=== PATIENT | female | born 1990 | race Caucasian/White ===

== ENCOUNTER 2019-02-23 07:59 | Emergency (ER) | payer OTHER ==
[2019-02-23 08:04] VITALS: BP 120/73; PULSE 102; RESP 20; TEMP 98.1
[2019-02-23] MEDS ORDERED: DIAZEPAM 5 MG TAB PO STA (08:26)
[2019-02-23] MEDS ORDERED: KETOROLAC 30 MG/ML 1 ML VIAL IM STA (08:26)
--- NOTE | 2019-02-23 08:29 | ED ---
General Adult HPI - General Chief complaint: Neck Pain/Injury Stated complaint: Neck Pain, Pinched nerve Time Seen by Provider: 02/23/19 08:08 Source: patient, RN notes reviewed, old records reviewed Mode of arrival: ambulatory Limitations: no limitations - History of Present Illness Initial comments: Patient is a 29-year-old female presents today with 3 weeks of left-sided neck pain. She reports that she'll occasionally get numbness and tingling around on the left side of her arm into the third fourth and fifth digit. Patient reports that she has seen medics breath and started on steroids muscle relaxers. She reports that Flexeril helped slightly but the pain is continuing to persist today and she cannot get much sleep last night. Patient states that she has been taking the steroids and anti-inflammatory medicine as prescribed. She denies any fall or trauma for the onset of her pain. She was just woke up around 3 weeks ago. Patient states she went to a chiropractor to see if that would help but has had no significant success at this time. - Related Data Previous Rx's Medication Instructions Recorded Diazepam [Valium] 5 mg PO Q8HR PRN 3 Days #9 tab 02/23/19 Allergies Allergy/AdvReac Type Severity Reaction Status Date / Time No Known Allergies Allergy Verified 02/23/19 08:04 Review of Systems ROS Statement: Those systems with pertinent positive or pertinent negative responses have been documented in the HPI. ROS Other: All systems not noted in ROS Statement are negative. Past Medical History Past Medical History: No Reported History History of Any Multi-Drug Resistant Organisms: None Reported Past Surgical History: Cholecystectomy Past Psychological History: No Psychological Hx Reported Smoking Status: Current every day smoker Past Alcohol Use History: None Reported Past Drug Use History: None Reported General Exam - General Exam Comments Initial Comments: This is a 29-year-old female. Alert and oriented. No distress. Limitations: no limitations General appearance: alert, in no apparent distress Head exam: Present: atraumatic, normocephalic, normal inspection Eye exam: Present: normal appearance, PERRL, EOMI. Absent: scleral icterus, conjunctival injection, periorbital swelling ENT exam: Present: normal exam, mucous membranes moist Neck exam: Present: normal inspection, other (tenderness over left cervical spine and paraspinal muscles. ). Absent: tenderness, meningismus, lymphadenopathy Respiratory exam: Present: normal lung sounds bilaterally. Absent: respiratory distress, wheezes, rales, rhonchi, stridor Cardiovascular Exam: Present: regular rate, normal rhythm, normal heart sounds. Absent: systolic murmur, diastolic murmur, rubs, gallop, clicks GI/Abdominal exam: Present: soft, normal bowel sounds. Absent: distended, tenderness, guarding, rebound, rigid Extremities exam: Present: normal inspection, full ROM, normal capillary refill. Absent: tenderness, pedal edema, joint swelling, calf tenderness Back exam: Present: normal inspection Neurological exam: Present: alert, oriented X3, CN II-XII intact Course Vital Signs 02/23/19 08:02 Temperature 98.1 F Pulse Rate 102 H Respiratory 20 Rate Blood Pressure 120/73 O2 Sat by Pulse 99 Oximetry Medical Decision Making - Medical Decision Making This is a 29-year-old female presents today with complaints of left-sided neck pain pain with range of motion and movement. Patient this time has evidence of cervical spinal muscle spasm. X-ray shows evidence of displaced or at C5-C6 C6- C7. She occasionally will have paresthesias over the lateral aspect of the hand and arm. He reports paresthesias over the third fourth and fifth digit consistent with median nerve compression. Patient at this time was given IM Toradol, Coreg Patient Lucina. Discussed that she needs to follow-up with orthopedic fiscal specialist. All questions answered return parameters were discussed. - Radiology Data Radiology results: report reviewed Cervical spine visualized C1 through T1 and some review. Straight alignment without evidence of acute fracture dislocation. Prevertebral soft tissue appears within normal limits. C1-C2 articulation is within normal limits. Vertebral heights are obtained. This was staring at C5-C6 and C6-C7 levels. Mild anterior spurring at C6-C7. Patient's hair overlaps the cervical spine on the frontal be more prominent midline. Disposition Clinical Impression: Spasm of cervical paraspinous muscle, DDD (degenerative disc disease), cervical, Paresthesia and pain of left extremity Disposition: HOME SELF-CARE Condition: Good Instructions (If sedation given, give patient instructions): Cervical Strain (ED) Additional Instructions: Patient has a continue the steroid and antibiotic her medicine as previously prescribed. Patient should follow-up with orthopedic fiscal specialist and may benefit from deep tissue massage or continuing warm compresses over the neck. Prescriptions: Diazepam [Valium] 5 mg PO Q8HR PRN 3 Days #9 tab PRN Reason: Spasms Is patient prescribed a controlled substance at d/c from ED?: Yes If prescribed controlled substance>3 days was MAPS reviewed?: Prescribed <3 Days If opioid is for acute pain is fill amount 7 days or less?: Yes If Rx opioid, was Start Talking consent form obtained?: Yes Referrals: None,Stated [Primary Care Provider] - 1-2 days Rocco Soriano, [Doctor of Osteopathic Medicine] - 1-2 days Time of Disposition: 09:07
--- NOTE | 2019-02-23 08:51 | XR ---
EXAMINATION TYPE: XR cervical spine limited DATE OF EXAM: 02/23/2019 TECHNIQUE: Frontal, lateral, swimmer's, and open mouth view of the cervical spine are obtained. HISTORY: Pain COMPARISON: None FINDINGS: The cervical spine is visualized from C1 thru the top of T1 level on swimmer's view, it is straightened in alignment without evidence of acute fracture or dislocation. The pre-vertebral soft tissue appears within normal limits. The C1-C2 articulation is within normal limits on the open devendra th view. Vertebral body heights are maintained. There is mild disc space narrowing C5-C6 and C6-C7 le vels. Mild anterior spurring C6-C7 level is seen. Patient's hair overlaps the upper cervical spine on frontal view more prominent right of midline. IMPRESSION: As above
== END 2019-02-23 09:17 | disposition home or self-care (01) ==
LOC: EC 07:59
DX: M50.322 Other cervical disc degeneration at C5-C6 level (principal); F17.200 Nicotine dependence, unspecified, uncomplicated
CPT/HCPCS: 72040; 99284; 96372; J1885

== ENCOUNTER 2020-08-17 19:33 | Emergency (ER) | payer OTHER ==
[2020-08-17] MEDS ORDERED: ALBUTEROL NEBULIZED 2.5 MG/3 ML INHALATION STA ×2 (20:12→21:06)
[2020-08-17] MEDS ORDERED: diphenhydrAMINE 50 MG/ML 1 ML VIAL IVP STA (20:13)
--- NOTE | 2020-08-17 20:16 | ED ---
SOB HPI - General Chief Complaint: Shortness of Breath Stated Complaint: SOB Time Seen by Provider: 08/17/20 19:39 Source: patient Mode of arrival: ambulatory Limitations: no limitations - History of Present Illness Initial Comments: 30-year-old female presenting for 2 hours of shortness of breath. Patient states prostate 2 hours prior to arrival she developed shortness of breath she states that it hurts at maximal inspiration and feels tight/restrictive and is uncomfortable. Pt denies nausea, vomiting, fevers, abdominal pain, diarrhea, admits to slight cough and feels liek she is wheezing. denies asthma but states she has some food allergies, denies ingesting triggers but states she has been itching her arm since she has developed the shortness of breath/tightness/pain. Denies hemoptysis, leg swelling, calf pain. pt is currently 15.5 week . Patient enies lip or tongue swelling or sensation that throat is closing. Patient has no additional complaints. - Related Data Home Medications Medication Instructions Recorded Confirmed Cyclobenzaprine [Flexeril] 10 mg PO DAILY PRN 02/23/19 02/23/19 Ibuprofen [Motrin] 600 mg PO Q8HR PRN 02/23/19 02/23/19 Previous Rx's Medication Instructions Recorded diazePAM [Valium] 5 mg PO Q8HR PRN 3 Days #9 tab 02/23/19 Albuterol Sulfate [Proair Hfa] 1 - 2 puff INHALATION Q6HR PRN #1 08/17/20 inhaler Allergies Allergy/AdvReac Type Severity Reaction Status Date / Time No Known Allergies Allergy Verified 08/17/20 19:37 Review of Systems ROS Statement: Those systems with pertinent positive or pertinent negative responses have been documented in the HPI. ROS Other: All systems not noted in ROS Statement are negative. Past Medical History Past Medical History: No Reported History History of Any Multi-Drug Resistant Organisms: None Reported Past Surgical History: Cholecystectomy Past Psychological History: No Psychological Hx Reported Smoking Status: Former smoker Past Alcohol Use History: None Reported Past Drug Use History: None Reported General Exam - General Exam Comments Initial Comments: General: The patient is awake and alert, in no distress Eye: +3 mm pupils are equal, round and reactive to light, extra-ocular m ovements are intact. No nystagmus. There is normal conjunctiva bilaterally. No signs of icterus. Ears, nose, mouth and throat: There are moist mucous membranes and no oral lesions. Neck: The neck is supple, there is no tenderness or JVD. Cardiovascular: There is a regular rate and rhythm. No murmur, rub or gallop is appreciated. Respiratory: Respirations are non-labored, breath sounds are equal. Diminished air movmeent with expiratory wheeze. No stridor, rales, or rhonchi. Gastrointestinal: Soft, non-distended, non-tender abdomen without masses or organomegaly noted. There is no rebound or guarding present. Musculoskeletal: Normal ROM, no tenderness. Strength 5/5. Sensation intact. Radial pulses equal bilaterally 2+. Neurological: A&O x 3. CN II-XII intact grossly, There are no obvious motor or sensory deficits. Coordination appears grossly intact. Speech is normal. Skin: Skin is warm and dry and no rashes or lesions are noted. Psychiatric: Cooperative, appropriate mood & affect, normal judgment. Limitations: no limitations Course Vital Signs 08/17/20 08/17/20 08/17/20 19:33 20:32 20:36 Temperature 98.9 F Pulse Rate 102 H 99 104 H Respiratory 26 H Rate Blood Pressure 127/79 O2 Sat by Pulse 96 Oximetry 08/17/20 08/17/20 08/17/20 20:44 21:23 21:28 Temperature 98.5 F Pulse Rate 98 96 95 Respiratory 20 Rate Blood Pressure 132/68 O2 Sat by Pulse 100 Oximetry 08/17/20 22:11 Temperature 98.5 F Pulse Rate 104 H Respiratory 20 Rate Blood Pressure 118/78 O2 Sat by Pulse 100 Oximetry - Reevaluation(s) Reevaluation #1: pt on re-evaluation states pain gone and feels much less SOB after treatment/benadryl 08/17/20 Reevaluation #2: Second re-evaluation; pt state she feels 100% better. like she can actually breathe. discussed case with Dr. baldwin who recommends d/c with proair inhaler. 08/17/20 22:01 Medical Decision Making - Medical Decision Making nontoxic appearing 30yo female presenting for chest "restrictive" feeling at maximal inspiration, wheezing, itching. improvement with benadryl/albuterol. pt lungs cleared, improvement of overall airmovement and resolution of wheezing. patient and attending are both agreable and prefer discharge at this time. patient appears well, is not hypoxic and is to return for return of symptoms. - Lab Data Result diagrams: 08/17/20 20:19 08/17/20 20:19 Lab Results 08/17/20 08/17/20 08/17/20 Range/Units 20:19 20:19 20:19 WBC 12.9 H (3.8-10.6) k/uL RBC 4.95 (3.80-5.40) m/uL Hgb 14.0 (11.4-16.0) gm/dL Hct 40.4 (34.0-46.0) % MCV 81.6 (80.0-100.0) fL MCH 28.2 (25.0-35.0) pg MCHC 34.5 (31.0-37.0) g/dL RDW 14.1 (11.5-15.5) % Plt Count 186 (150-450) k/uL MPV 7.4 Neutrophils % 64 % Lymphocytes % 28 % Monocytes % 4 % Eosinophils % 2 % Basophils % 1 % Neutrophils # 8.3 H (1.3-7.7) k/uL Lymphocytes # 3.6 (1.0-4.8) k/uL Monocytes # 0.5 (0-1.0) k/uL Eosinophils # 0.3 (0-0.7) k/uL Basophils # 0.1 (0-0.2) k/uL PT 10.1 (9.0-12.0) sec INR 0.9 (<1.2) APTT 23.1 (22.0-30.0) sec Sodium 138 (137-145) mmol/L Potassium 4.2 (3.5-5.1) mmol/L Chloride 104 (98-107) mmol/L Carbon Dioxide 24 (22-30) mmol/L Anion Gap 10 mmol/L BUN 6 L (7-17) mg/dL Creatinine 0.52 (0.52-1.04) mg/dL Est GFR (CKD-EPI)AfAm >90 (>60 ml/min/1.73 sqM) Est GFR (CKD-EPI)NonAf >90 (>60 ml/min/1.73 sqM) Glucose 104 H (74-99) mg/dL Plasma Lactic Acid Pietro (0.7-2.0) mmol/L Calcium 9.3 (8.4-10.2) mg/dL Total Bilirubin 0.3 (0.2-1.3) mg/dL AST 22 (14-36) U/L ALT 20 (4-34) U/L Alkaline Phosphatase 68 (38-126) U/L Troponin I (0.000-0.034) ng/mL NT-Pro-B Natriuret Pep pg/mL Total Protein 6.7 (6.3-8.2) g/dL Albumin 3.7 (3.5-5.0) g/dL Coronavirus (PCR) (Not Detectd) 08/17/20 08/17/20 08/17/20 Range/Units 20:19 20:19 20:19 WBC (3.8-10.6) k/uL RBC (3.80-5.40) m/uL Hgb (11.4-16.0) gm/dL Hct (34.0-46.0) % MCV (80.0-100.0) fL MCH (25.0-35.0) pg MCHC (31.0-37.0) g/dL RDW (11.5-15.5) % Plt Count (150-450) k/uL MPV Neutrophils % % Lymphocytes % % Monocytes % % Eosinophils % % Basophils % % Neutrophils # (1.3-7.7) k/uL Lymphocytes # (1.0-4.8) k/uL Monocytes # (0-1.0) k/uL Eosinophils # (0-0.7) k/uL Basophils # (0-0.2) k/uL PT (9.0-12.0) sec INR (<1.2) APTT (22.0-30.0) sec Sodium (137-145) mmol/L Potassium (3.5-5.1) mmol/L Chloride (98-107) mmol/L Carbon Dioxide (22-30) mmol/L Anion Gap mmol/L BUN (7-17) mg/dL Creatinine (0.52-1.04) mg/dL Est GFR (CKD-EPI)AfAm (>60 ml/min/1.73 sqM) Est GFR (CKD-EPI)NonAf (>60 ml/min/1.73 sqM) Glucose (74-99) mg/dL Plasma Lactic Acid Pietro 1.4 (0.7-2.0) mmol/L Calcium (8.4-10.2) mg/dL Total Bilirubin (0.2-1.3) mg/dL AST (14-36) U/L ALT (4-34) U/L Alkaline Phosphatase (38-126) U/L Troponin I <0.012 (0.000-0.034) ng/mL NT-Pro-B Natriuret Pep 103 pg/mL Total Protein (6.3-8.2) g/dL Albumin (3.5-5.0) g/dL Coronavirus (PCR) (Not Detectd) 08/17/20 Range/Units 20:47 WBC (3.8-10.6) k/uL RBC (3.80-5.40) m/uL Hgb (11.4-16.0) gm/dL Hct (34.0-46.0) % MCV (80.0-100.0) fL MCH (25.0-35.0) pg MCHC (31.0-37.0) g/dL RDW (11.5-15.5) % Plt Count (150-450) k/uL MPV Neutrophils % % Lymphocytes % % Monocytes % % Eosinophils % % Basophils % % Neutrophils # (1.3-7.7) k/uL Lymphocytes # (1.0-4.8) k/uL Monocytes # (0-1.0) k/uL Eosinophils # (0-0.7) k/uL Basophils # (0-0.2) k/uL PT (9.0-12.0) sec INR (<1.2) APTT (22.0-30.0) sec Sodium (137-145) mmol/L Potassium (3.5-5.1) mmol/L Chloride (98-107) mmol/L Carbon Dioxide (22-30) mmol/L Anion Gap mmol/L BUN (7-17) mg/dL Creatinine (0.52-1.04) mg/dL Est GFR (CKD-EPI)AfAm (>60 ml/min/1.73 sqM) Est GFR (CKD-EPI)NonAf (>60 ml/min/1.73 sqM) Glucose (74-99) mg/dL Plasma Lactic Acid Pietro (0.7-2.0) mmol/L Calcium (8.4-10.2) mg/dL Total Bilirubin (0.2-1.3) mg/dL AST (14-36) U/L ALT (4-34) U/L Alkaline Phosphatase (38-126) U/L Troponin I (0.000-0.034) ng/mL NT-Pro-B Natriuret Pep pg/mL Total Protein (6.3-8.2) g/dL Albumin (3.5-5.0) g/dL Coronavirus (PCR) Not Detected (Not Detectd) Disposition Clinical Impression: Dyspnea, Wheezing, Chest discomfort Disposition: HOME SELF-CARE Condition: Good Instructions (If sedation given, give patient instructions): Food Allergy (ED), Reactive Airways Disease (ED) Additional Instructions: Please use medication as discussed. Please follow-up with family doctor in the next 2 days. RETURN TO ER FOR ANY ADDITIONAL EPISODES OF DYSPNEA OR CHEST DISCOMFORT. Please return to emergency room if the symptoms increase or worsen or for any other concerns. Prescriptions: Albuterol Sulfate [Proair Hfa] 1 - 2 puff INHALATION Q6HR PRN #1 inhaler PRN Reason: Wheezing Is patient prescribed a controlled substance at d/c from ED?: No Referrals: None,Stated [Primary Care Provider] - 1-2 days Time of Disposition: 21:51
--- NOTE | 2020-08-17 20:28 | XR ---
EXAMINATION TYPE: XR chest 2V DATE OF EXAM: 08/17/2020 COMPARISON: NONE HISTORY: Cough TECHNIQUE: 2 views FINDINGS: Heart and mediastinum are normal. Lungs are clear. Diaphragm is normal. Bony thorax appears normal. IMPRESSION: Normal chest.
[2020-08-17 20:36] LABS: Basophils # (A) 0.1 k/uL (0-0.2); Basophils % (A) 1 %; Eosinophils # (A) 0.3 k/uL (0-0.7); Eosinophils % (A) 2 %; HCT 40.4 % (34.0-46.0); Lymphocytes # (A) 3.6 k/uL (1.0-4.8); Lymphocytes % (A) 28 %; MCH 28.2 pg (25.0-35.0); MCHC 34.5 g/dL (31.0-37.0); MCV 81.6 fL (80.0-100.0); Mean Platelet Volume 7.4; Monocytes # (A) 0.5 k/uL (0-1.0); Monocytes % (A) 4 %; Neutrophils # (A) 8.3 k/uL (1.3-7.7); Neutrophils % (A) 64 %; Platelet Count 186 k/uL (150-450); RBC 4.95 m/uL (3.80-5.40); RDW 14.1 % (11.5-15.5); WBC 12.9 k/uL (3.8-10.6)
[2020-08-17 20:46] VITALS: RESP 20; TEMP 98.5
[2020-08-17 20:46] LABS: ALT 20 U/L (4-34); AST 22 U/L (14-36); African American GFR (CKD) >90 (>60 ml/min/1.73 sqM); Albumin 3.7 g/dL (3.5-5.0); Alkaline Phosphatase 68 U/L (38-126); Anion Gap 10 mmol/L; Blood Urea Nitrogen 6 mg/dL (7-17); Calcium 9.3 mg/dL (8.4-10.2); Carbon Dioxide 24 mmol/L (22-30); Chloride 104 mmol/L (98-107); Glucose 104 mg/dL (74-99); Non-African American GFR(CKD) >90 (>60 ml/min/1.73 sqM); Potassium 4.2 mmol/L (3.5-5.1); Sodium 138 mmol/L (137-145); Total Bilirubin 0.3 mg/dL (0.2-1.3); Total Protein 6.7 g/dL (6.3-8.2)
[2020-08-17 20:48] LABS: INR 0.9 (<1.2); Partial Thromboplastin Time 23.1 sec (22.0-30.0); Prothrombin Time 10.1 sec (9.0-12.0)
[2020-08-17 22:13] VITALS: BP 118/78; PULSE 104
== END 2020-08-17 22:11 | disposition home or self-care (01) ==
LOC: EC 19:33
DX: R06.00 Dyspnea, unspecified (principal); R07.89 Other chest pain; R06.2 Wheezing; Z20.822 Contact with and (suspected) exposure to COVID-19; Z87.891 Personal history of nicotine dependence; Z90.49 Acquired absence of other specified parts of digestive tract
CPT/HCPCS: 36415; 94640 ×2; 93005; 83880; 80053; 83605; 84484; 85025; 85610; 85730; 87635; 71046; 99285; 96374; J1200

== ENCOUNTER 2021-01-30 10:12 | Outpatient (CLI) | payer OTHER ==
--- NOTE | 2021-01-30 12:04 | US ---
EXAMINATION TYPE: US OB limited DATE OF EXAM: 01/30/2021 COMPARISON: NONE CLINICAL HISTORY: SIMBA. EXAM PERFORMED: GESTATIONAL AGE / DATING Physician Established: (38 weeks/4 days) EDC: 02/09/2021 No growth performed on today?s study per ordering physician SURVEY SIMBA: 11.1 cm Normal Ultrasound evidence of premature rupture of membranes? no HEART RATE: 154 bpm RHYTHM: Normal IMPRESSION: Single live intrauterine with amniotic fluid index measuring 11.1 cm.
== END 2021-01-30 10:43 | disposition home or self-care (01) ==
LOC: FBPOP 10:12
PROVIDERS: ATTEND Obstetrics & Gynecology
DX: O41.03X0 Oligohydramnios, third trimester, not applicable or unspecified (principal); O99.333 Smoking (tobacco) complicating pregnancy, third trimester; F17.200 Nicotine dependence, unspecified, uncomplicated; Z3A.38 38 weeks gestation of pregnancy
CPT/HCPCS: 76815

== ENCOUNTER 2021-02-04 06:00 | Inpatient (IN) | payer BC, OTHER ==
--- NOTE | 2021-02-03 20:04 | P.HPOB ---
History of Present Illness H&P Date: 02/03/21 Chief Complaint: Induction of labor This is a 30 y.o. female, 1, para 0 with an estimated date of confinement of 02/09/2021, estimated gestational age of 39-2/7 weeks, who presents for induction of labor. She complains of lower back pain and frequent contractions. Her fluid level was low at 5-6 cm for a couple weeks, but last week SIMBA was 11 cm. course has otherwise been uncomplicated. labs: GC/Chlamydia/Trichomonas-neg Hepatitis B surface antigen-neg RPR-NR Rubella-immune Blood type-B+ Antibody screen-neg HIV-NR Hemoglobin-14.6 Toxoplasma-neg Random glucose-86 1 hr. GTT-126 GBS-positive OB Hx: Hand Sander Hx: No hx STDs Social Hx: . Works as a therapist. Review of Systems Constitutional: Denies chills, Denies fever Eyes: denies blurred vision, denies pain Ears, nose, mouth and throat: Denies headache, Denies sore throat Cardiovascular: Denies chest pain, Denies shortness of breath Respiratory: Denies cough Gastrointestinal: Reports abdominal pain (contractions) Genitourinary: Reports pelvic pain, Reports Musculoskeletal: Reports low back pain Integumentary: Denies pruritus, Denies rash Neurological: Denies numbness, Denies weakness Psychiatric: Denies anxiety, Denies depression Past Medical History Past Medical History: No Reported History History of Any Multi-Drug Resistant Organisms: None Reported Past Surgical History: Cholecystectomy Past Psychological History: No Psychological Hx Reported Smoking Status: Former smoker Past Alcohol Use History: None Reported Past Drug Use History: None Reported - Past Family History Mother Family Medical History: No Reported History Medications and Allergies Home Medications Medication Instructions Recorded Confirmed Type Pnv,Calcium 72/Iron/Folic Acid 02/03/21 History [ Plus Tablet] Allergies Allergy/AdvReac Type Severity Reaction Status Date / Time No Known Allergies Allergy Verified 01/30/21 10:33 Exam Osteopathic Statement: *. No significant issues noted on an osteopathic structural exam other than those noted in the History and Physical/Consult. HEENT: within normal limits Heart: regular rate and rhythm Lungs: clear to auscultation bilaterally Abdomen: soft, Cervix: 2 cm/60%/-2 heart tones: 140's Extremities: neg. Shannon's Assessment and Plan (1) 39 weeks gestation of Status: Acute Code(s): Z3A.39 - 39 WEEKS GESTATION OF SNOMED Code(s): 98506401 Plan: Proceed with oxytocin induction of labor. Expectant management. Epidural anesthesia if desired.
[2021-02-04] MEDS ORDERED: METHYLERGONOVINE 0.2 MG/ML 1 ML AMP IM PRN (06:32)
[2021-02-04] MEDS ORDERED: OXYTOCIN 30 UNITS/500 ML NS 30 UNIT in SALINE 1 500ML.BAG IV SCH (06:32)
[2021-02-04] MEDS ORDERED: CARBOPROST TROMETHAMINE 250 MCG/ML 1 ML AMP IM PRN (06:32)
[2021-02-04] MEDS ORDERED: LIDOCAINE 1% (10MG/ML) FOR IV START INTRADERMA PRN (06:32)
[2021-02-04] MEDS ORDERED: LIDOCAINE 0.5% (PF) 5 MG/ML (50 ML SDV) SQ PRN (06:32)
[2021-02-04] MEDS ORDERED: TERBUTALINE 1 MG/ML VIAL SQ PRN (06:32)
[2021-02-04] MEDS ORDERED: AMPICILLIN 2,000 MG in SODIUM CHLORIDE 0.9% 100 ML IVPB ONE (06:32)
[2021-02-04] MEDS ORDERED: OXYTOCIN 10 UNIT/ML 1 ML VIAL IM PRN (06:32)
[2021-02-04 06:43] LABS: Basophils % (A) 0 %; Eosinophils # (A) 0.2 k/uL (0-0.7); Eosinophils % (A) 1 %; HCT 37.6 % (34.0-46.0); HGB 12.8 gm/dL (11.4-16.0); Lymphocytes # (A) 2.8 k/uL (1.0-4.8); Lymphocytes % (A) 20 %; MCH 28.6 pg (25.0-35.0); MCV 84.3 fL (80.0-100.0); Mean Platelet Volume 8.6; Monocytes # (A) 0.6 k/uL (0-1.0); Monocytes % (A) 4 %; Neutrophils % (A) 73 %; Platelet Count 228 k/uL (150-450); RBC 4.47 m/uL (3.80-5.40); RDW 13.9 % (11.5-15.5); WBC 13.7 k/uL (3.8-10.6)
[2021-02-04] MEDS: LACTATED RINGERS 1,000 ML IV SCH ×2 (06:56→14:35)
[2021-02-04] MEDS: AMPICILLIN 1,000 MG in SODIUM CHLORIDE 0.9% 50 ML IVPB SCH ×3 (11:06→19:18)
[2021-02-04] MEDS: BUTORPHANOL 1 MG/ML 1 ML VIAL IV PRN ×3 (15:57→22:25)
[2021-02-05] MEDS ORDERED: ACETAMINOPHEN TAB 325 MG TAB PO PRN (00:13)
[2021-02-05] MEDS ORDERED: ZOLPIDEM 5 MG TAB PO PRN (00:13)
[2021-02-05] MEDS ORDERED: diphenhydrAMINE 25 MG CAP PO PRN (00:13)
[2021-02-05] MEDS ORDERED: BENZOCAINE/MENTHOL SPRAY 1 GM/SPRAY AEROSOL TOPICAL PRN (00:13)
[2021-02-05] MEDS ORDERED: diphenhydrAMINE 50 MG CAP PO PRN (00:13)
[2021-02-05] MEDS ORDERED: diphenhydrAMINE 50 MG/ML 1 ML VIAL IVP PRN ×2 (00:13)
[2021-02-05] MEDS ORDERED: SIMETHICONE 80 MG CHEWABLE PO PRN (00:13)
[2021-02-05] MEDS ORDERED: LANOLIN CREAM 5 GM TUBE TOPICAL PRN (00:13)
[2021-02-05] MEDS ORDERED: HYDROCORTISONE 2.5% RECTAL CREAM 30 GM TUBE RECTAL PRN (00:13)
[2021-02-05] MEDS ORDERED: OXYTOCIN 30 UNITS/500 ML NS 30 UNIT in SALINE 1 500ML.BAG IV SCH (00:13)
[2021-02-05 00:17] VITALS: RESP 16
--- NOTE | 2021-02-05 00:25 | P.PROBDLV ---
Vaginal Delivery Note - . Vaginal Delivery Note: This patient underwent oxytocin induction of labor with artificial rupture of membranes with clear fluid noted. She did also receive antibiotic prophylaxis for group B streptococcus. Her labor stalled at 5 cm for several hours and with continued oxytocin, she did make further change. She did receive several doses of Stadol while in labor. She reached complete dilation and began pushing. Shortly after beginning pushing, the baby's heart rate did dip into the 80s with very gradual return up to the 90s. After several minutes and various position changes, she was placed on her hands and knees. When this did not resolve the heart rate, she was put back on her back and immediately the heart rate came back up into the 100's. She resumed pushing and with one further push, the infant's head delivered in a right occiput anterior lie. At this point it was apparent that there was a turtle sign and shoulder dystocia was recognized. Additional staff was already in the room. I had the patient stop pushing and I put my gloved hand in between the baby and the symphysis pubis. The shoulders were in an transverse lie straight across the pelvis. I had her try to push once and this did not free up the shoulder dystocia. Therefore I swept my hand along the baby's back towards the posterior or right shoulder and turn the baby slightly into a more vertical axis. She then was able to give a push and baby did deliver. Total time of shoulder dystocia was 2 minutes. There was a cord around 1 hand but no nuchal cord. The baby was immediately placed on mother's abdomen and nose and mouth were bulb suctioned. Cord was clamped and cut and baby was taken immediately to warmer for awaiting nursing staff. A viable male infant is noted with weight of 7 lbs. 5 oz. scores are 6 at 1 minute 9 at 5 minutes and 9 at 10 minutes. Baby is moving all extremities and was pink and crying shortly after delivery. No evidence of fracture was identified at the time of delivery. After waiting almost 20 minutes for the placenta to deliver, I placed my gloved hand within the uterus and manually removed the placenta. It was adherent to the fundal region slightly but I was able to free it in pieces. Uterus did contract fairly well after oxytocin was given and uterine massage was carried out. I placed a gloved hand back in after the placenta was removed and no further tissue was obtained. Inspection of the perineum revealed a small second-degree perineal laceration and a right periurethral laceration. The second-degree perineal laceration was anesthetized with 1% lidocaine and then sutured with 3-0 Vicryl suture in the usual multilayer fashion. The right periurethral laceration was anesthetized with 1% lidocaine and then sutured with 2-0 Vicryl suture in a running locked fashion. Estimated blood loss is approximately 200 mL's. Mother and are both in stable condition.
[2021-02-05] MEDS: IBUPROFEN 600 MG TAB PO PRN ×2 (00:44→15:53)
[2021-02-05] MEDS: LACTATED RINGERS 1,000 ML IV SCH (00:47)
[2021-02-05] MEDS: AMPICILLIN 1,000 MG in SODIUM CHLORIDE 0.9% 50 ML IVPB SCH (00:47)
[2021-02-05] MEDS: SENNOSIDES-DOCUSATE SODIUM 1 EACH TAB PO SCH ×3 (02:36→20:29)
[2021-02-05 06:53] LABS: Basophils % (A) 0 %; Eosinophils % (A) 0 %; HCT 38.3 % (34.0-46.0); HGB 12.3 gm/dL (11.4-16.0); Lymphocytes % (A) 9 %; MCH 27.4 pg (25.0-35.0); MCHC 32.1 g/dL (31.0-37.0); MCV 85.3 fL (80.0-100.0); Mean Platelet Volume 8.7; Monocytes # (A) 0.8 k/uL (0-1.0); Monocytes % (A) 3 %; Neutrophils # (A) 20.6 k/uL (1.3-7.7); Neutrophils % (A) 87 %; Platelet Count 248 k/uL (150-450); RBC 4.49 m/uL (3.80-5.40); RDW 13.8 % (11.5-15.5); WBC 23.6 k/uL (3.8-10.6)
--- NOTE | 2021-02-05 08:24 | P.PNOBGVD ---
Subjective - Subjective Principal diagnosis: Status post vaginal delivery day #1 Interval history: Patient is doing well today. Pain is fairly well controlled with Tylenol. Bleeding has been minimal. Baby is working on latching. Patient reports: Reports appetite normal, Reports voiding normally, Reports pain well controlled, Reports ambulating normally [place]: doing well, nursing well Objective - Latest Vital Signs Latest vital signs: Vital Signs Temp Pulse Resp BP 02/05/21 03:57 97.1 F L 97 16 121/81 02/05/21 01:30 76 16 112/54 02/05/21 01:00 90 16 111/57 02/05/21 00:30 94 16 132/81 02/05/21 00:15 101 H 16 133/70 02/05/21 00:00 99 18 144/66 02/04/21 23:45 94 18 119/72 02/04/21 23:30 97.0 F L 94 18 119/72 Intake and Output 02/04/21 02/05/21 02/05/21 22:59 06:59 14:59 Intake Total 167 Output Total 500 Balance -333 Intake: Intake, IV Titration 167 Amount Oxytocin 30 Units/500 ml 167 Ns 30 unit In Saline 1 500ml.bag @ Per Protocol IV .Q0M [facility] Rx#:[id number] Output: Estimated Blood Loss 500 Other: # Voids 2 1 - Exam Extremities: Present: normal. Absent: tenderness Abdomen: Present: normal appearance, soft. Absent: distention, tenderness Uterus: Present: normal, firm. Absent: tenderness - Labs Labs: Abnormal Lab Results - Last 24 Hours (Table) 02/05/21 Range/Units 06:21 WBC 23.6 H (3.8-10.6) k/uL Neutrophils # 20.6 H (1.3-7.7) k/uL Assessment and Plan Assessment: Status post vaginal delivery day #1 (1) 39 weeks gestation of Current Visit: No Status: Acute Code(s): Z3A.39 - 39 WEEKS GESTATION OF SNOMED Code(s): 50416390 Plan: Continue with care today. Anticipate discharge home tomorrow.
[2021-02-06] MEDS: IBUPROFEN 600 MG TAB PO PRN ×2 (01:25→08:00)
[2021-02-06 08:15] VITALS: BP 124/83; PULSE 77; TEMP 98.2
--- NOTE | 2021-02-06 09:00 | P.DS ---
Providers Date of admission: 02/04/21 06:10 Expected date of discharge: 02/06/21 Attending physician: Lou Gan Primary care physician: Stated None - Discharge Diagnosis(es) (1) 39 weeks gestation of Current Visit: No Status: Acute Hospital Course: This is a 30-year-old female 1 para 0 at 39-2/7 weeks who presented for induction of labor. She underwent oxytocin induction of labor and delivered vaginally a viable male with scores of 6 at 1 minute 9 at 5 minutes and 9 at 10 minutes and weight of 7 lbs. 5 oz. Delivery was complicated by a 2 minute shoulder dystocia. Both baby and mother have been doing well since delivery. Her course has been uncomplicated. Lochia has been decreasing. Pain is been well controlled with Tylenol. She is breast-feeding. Vital signs are stable. Abdomen is soft with fundus firm and nontender. Extremities show negative Homans. Impression is status post vaginal delivery day #2. Plan is to discharge home today. Routine instructions are given. She will be given a prescription for a breast pump. She is advised to call the office if she has any further questions or concerns prior to her appointment time. Procedures: Oxytocin induction of labor Spontaneous vaginal delivery of a viable male infant on 02/04/2021 Patient Condition at Discharge: Stable Plan - Discharge Summary New Discharge Prescriptions: No Action Pnv,Calcium 72/Iron/Folic Acid [ Plus Tablet] 1 tab PO DAILY Discharge Medication List Pnv,Calcium 72/Iron/Folic Acid [ Plus Tablet] 1 tab PO DAILY 02/03/21 [History] Follow up Appointment(s)/Referral(s): Lou Gan DO [Doctor of Osteopathic Medicine] - 03/18/21 11:30 am Activity/Diet/Wound Care/Special Instructions: Instructions 1. Do not begin any exercise program for 3 weeks. 2. Do not resume sexual relations for 3 weeks or longer if uncomfortable. 3. You may take tub baths or showers at any time. 4. You may use tampons if desired after 3 weeks. 5. Keep the area of episiotomy (stitches) clean and dry. 6. If you are not nursing, wear a good fitting, supportive bra during the day and limit fluid intake for at least 1 week to prevent breast engorgement. 7. Call the office, [phone], within the next week to make appointment for your 6 week checkup if it has not already been made. 8. Report any of the following occurrences to the doctor promptly: a. Heavy, excessive bleeding b. Chills, fever c. Burning or frequency of urination d. Pain or redness and breasts if nursing e. Increasing pain or swelling in episiotomy (stitches). In addition to the above instructions, the following additional should be followed: 1. No heavy lifting or straining (exercising) until after 6 week checkup. 2. Keep abdominal incision clean and dry: You may wear a dressing if more comfortable. 3. Make office appointment for 10 days after going home or as instructed by her doctor. Discharge Disposition: HOME SELF-CARE
== END 2021-02-06 10:55 | disposition home or self-care (01) | DRG 807 ==
LOC: 4FBP 06:10
PROVIDERS: ADMIT Obstetrics & Gynecology; ATTEND Obstetrics & Gynecology
PROC: 10E0XZZ Delivery of Products of Conception, External Approach (ICD-10-PCS; principal; 2021-02-05)
PROC: 3E033VJ Introduction of Other Hormone into Peripheral Vein, Percutaneous Approach (ICD-10-PCS; principal; 2021-02-05)
PROC: 0HQ9XZZ Repair Perineum Skin, External Approach (ICD-10-PCS; principal; 2021-02-05)
PROC: 10907ZC Drainage of Amniotic Fluid, Therapeutic from Products of Conception, Via Natural or Artificial Opening (ICD-10-PCS; principal; 2021-02-05)
DX: O32.2XX0 Maternal care for transverse and oblique lie, not applicable or unspecified (principal); Z37.0 Single live birth; O66.0 Obstructed labor due to shoulder dystocia; O70.1 Second degree perineal laceration during delivery; O36.8330 Maternal care for abnormalities of the fetal heart rate or rhythm, third trimester, not applicable or unspecified; O71.82 Other specified trauma to perineum and vulva; O69.81X0 Labor and delivery complicated by cord around neck, without compression, not applicable or unspecified; Z3A.39 39 weeks gestation of pregnancy; Z87.891 Personal history of nicotine dependence; Z90.49 Acquired absence of other specified parts of digestive tract
CPT/HCPCS: 85025; 86850; 86900; 86901; 88307

== ENCOUNTER 2022-04-16 04:33 | Emergency (ER) | payer BC, OTHER ==
[2022-04-16 04:38] VITALS: RESP 16
[2022-04-16] MEDS ORDERED: IPRATROPIUM-ALBUTEROL 3 ML NEB INHALATION STA (04:48)
--- NOTE | 2022-04-16 04:49 | ED ---
SOB HPI - General Chief Complaint: Shortness of Breath Stated Complaint: SOB Time Seen by Provider: 04/16/22 04:34 Source: patient, RN notes reviewed, old records reviewed Mode of arrival: ambulatory Limitations: no limitations - History of Present Illness Initial Comments: This is a 32-year-old female pulses of medical history coming in for difficulty breathing. Patient does believe that she has severe shortness of breath with congestion, feels like she is wheezing. Patient is a nonsmoker but is positive for recent diagnosis of . Patient wishes about 16 weeks. No chest pain no other complaints MD Complaint: shortness of breath, cough Severity scale (1-10): 3 Quality: aching Consistency: constant Improves With: nothing Worsens With: nothing Known History Of: asthma Context: recent illness, other (Positive for ) Associated Symptoms: denies other symptoms Treatments Prior to Arrival: none - Related Data Home Medications Medication Instructions Recorded Confirmed Vit No.180/Iron/Folic 1 tab PO DAILY 02/03/21 02/04/21 [ Plus Tablet] Previous Rx's Medication Instructions Recorded Albuterol Sulfate [Proair 1 puff INHALATION Q6H PRN #1 each 04/17/22 Digihaler] Allergies Allergy/AdvReac Type Severity Reaction Status Date / Time No Known Allergies Allergy Verified 04/16/22 04:35 Review of Systems ROS Statement: Those systems with pertinent positive or pertinent negative responses have been documented in the HPI. ROS Other: All systems not noted in ROS Statement are negative. Past Medical History Past Medical History: No Reported History History of Any Multi-Drug Resistant Organisms: None Reported Past Surgical History: Cholecystectomy Past Anesthesia/Blood Transfusion Reactions: No Reported Reaction Past Psychological History: No Psychological Hx Reported Smoking Status: Former smoker Past Alcohol Use History: None Reported Past Drug Use History: None Reported - Past Family History Mother Family Medical History: No Reported History General Exam Limitations: no limitations General appearance: alert, in no apparent distress Head exam: Present: atraumatic, normocephalic, normal inspection Eye exam: Present: normal appearance, PERRL, EOMI. Absent: scleral icterus, conjunctival injection, periorbital swelling ENT exam: Present: normal exam, mucous membranes moist Neck exam: Present: normal inspection. Absent: tenderness, meningismus, lymphadenopathy Respiratory exam: Present: normal lung sounds bilaterally, wheezes. Absent: respiratory distress, rales, rhonchi, stridor Cardiovascular Exam: Present: regular rate, normal rhythm, normal heart sounds. Absent: systolic murmur, diastolic murmur, rubs, gallop, clicks GI/Abdominal exam: Present: soft, normal bowel sounds. Absent: distended, tenderness, guarding, rebound, rigid Extremities exam: Present: normal inspection, full ROM, normal capillary refill. Absent: tenderness, pedal edema, joint swelling, calf tenderness Back exam: Present: normal inspection Neurological exam: Present: alert, oriented X3, CN II-XII intact Psychiatric exam: Present: normal affect, normal mood Skin exam: Present: warm, dry, intact, normal color. Absent: rash Course Vital Signs 04/16/22 04/16/22 04/16/22 04:35 04:38 04:51 Temperature 97.4 F L 98.2 F Pulse Rate 102 H 92 Respiratory 16 16 16 Rate Blood Pressure 139/91 128/76 O2 Sat by Pulse 98 93 L Oximetry 04/16/22 04/16/22 05:28 05:40 Temperature Pulse Rate 95 98 Respiratory Rate Blood Pressure O2 Sat by Pulse Oximetry - Reevaluation(s) Reevaluation #1: Medical record is reviewed Symptoms have been improved here in the ER Patient informed results and questions answered Medical Decision Making - Medical Decision Making 32-year-old difficulty breathing and . Breathing is been getting worse when she has have a normal x-ray here in the ER normal neurology testing and patient can be discharged home - Lab Data Lab Results 04/16/22 04/16/22 04/16/22 Range/Units 04:48 04:48 05:00 Urine Color Light Yellow Urine Appearance Clear (Clear) Urine pH 5.5 (5.0-8.0) Ur Specific [place] 1.005 (1.001-1.035) Urine Protein Negative (Negative) Urine Glucose (UA) Negative (Negative) Urine Ketones Negative (Negative) Urine Blood Negative (Negative) Urine Nitrite Negative (Negative) Urine Bilirubin Negative (Negative) Urine Urobilinogen <2.0 (<2.0) mg/dL Ur Leukocyte Esterase Negative (Negative) Urine HCG, Qual Detected (Not Detectd) Coronavirus (PCR) Not Detected (Not Detectd) - Radiology Data Radiology results: report reviewed (Chest x-rays negative for acute disease), image reviewed Disposition Clinical Impression: Acute bronchitis, Upper respiratory infection Disposition: HOME SELF-CARE Condition: Good Instructions (If sedation given, give patient instructions): Acute Bronchitis (ED) Prescriptions: Albuterol Sulfate [Proair Digihaler] 1 puff INHALATION Q6H PRN #1 each PRN Reason: Wheezing Is patient prescribed a controlled substance at d/c from ED?: No Referrals: None,Stated [Primary Care Provider] - 1-2 days Time of Disposition: 05:30
[2022-04-16 04:54] VITALS: BP 128/76; TEMP 98.2
--- NOTE | 2022-04-16 05:07 | XR ---
EXAMINATION TYPE: XR chest 1V portable DATE OF EXAM: 04/16/2022 COMPARISON: 08/17/2020 HISTORY: Cough TECHNIQUE: FINDINGS: Heart and mediastinum are normal. Lungs are clear. Diaphragm is normal. Bony thorax is inta ct. The pulmonary vascularity is normal. IMPRESSION: Normal chest. No change.
[2022-04-16 05:22] LABS: Appearance,Urine Clear (Clear); Bilirubin,Urine Negative (Negative); Blood,Urine Negative (Negative); Color,Urine Light Yellow; Glucose,Urine (UA) Negative (Negative); Ketones,Urine Negative (Negative); Leukocyte Esterase,Urine Negative (Negative); Nitrite,Urine Negative (Negative); PH, Urine 5.5 (5.0-8.0); Protein,Urine Negative (Negative); Specific Gravity,Urine 1.005 (1.001-1.035); Urobilinogen,Urine <2.0 mg/dL (<2.0)
[2022-04-16 05:41] VITALS: PULSE 98
== END 2022-04-16 06:30 | disposition home or self-care (01) ==
LOC: EC 04:33
DX: J20.9 Acute bronchitis, unspecified (principal); J06.9 Acute upper respiratory infection, unspecified; Z87.891 Personal history of nicotine dependence; Z20.822 Contact with and (suspected) exposure to COVID-19
CPT/HCPCS: 71045; 81003; 81025; 87635; 94640; 99285

== ENCOUNTER → 2022-06-26 | Outpatient (CLI) | payer BC, OTHER | END | disposition home or self-care (01) | LOC: LABWHC1 11:39 | PROVIDERS: ATTEND Emergency Medicine | DX: Z20.822 Contact with and (suspected) exposure to COVID-19 (principal) ==

== ENCOUNTER 2022-08-07 15:18 | Emergency (ER) | payer BC, OTHER ==
[2022-08-07 15:26] VITALS: TEMP 98.2
[2022-08-07] MEDS ORDERED: DEXAMETHASONE SOD PHOSPHATE 10 MG/ML 1 ML VIAL IV STA (15:34)
[2022-08-07] MEDS ORDERED: ALBUTEROL NEBULIZED 2.5 MG/3 ML INHALATION STA (15:34)
[2022-08-07] MEDS ORDERED: IPRATROPIUM 0.5 MG/2.5 ML NEBU INHALATION STA (15:34)
--- NOTE | 2022-08-07 15:52 | ED ---
General Adult HPI - General Chief complaint: Shortness of Breath Stated complaint: AL Time Seen by Provider: 08/07/22 15:28 Source: patient Mode of arrival: ambulatory Limitations: no limitations - History of Present Illness Initial comments: Dictation was produced using [employer] dictation software. please excuse any grammatical, word or spelling errors. Chief Complaint: 32-year-old female with known past medical history of asthma or COPD presents emergency department for shortness of breath History of Present Illness: Patient's 32-year-old female presents emergency department with shortness of breath. Patient states that her shortness of breath significantly increased today. She has been having bouts of wheezing since May after having been diagnosed with pneumonia and COVID-19. She started expense entrance of breath at work with noticeable wheezing. Denies any fever. She does have chest pain when she coughs. States that she has no history of blood clots or DVT. No recent travel. She does not take any antico agulation medication. Does not take oral contraceptives. The ROS documented in this emergency department record has been reviewed and confirmed by me. Those systems with pertinent positive or negative responses have been documented in the HPI. All other systems are other negative and/or noncontributory. PHYSICAL EXAM: General Impression: Alert and oriented x3, dyspneic, reading with pursed lips HEENT: Normocephalic atraumatic, extra-ocular movements intact, pupils equal and reactive to light bilaterally, mucous membranes moist. Cardiovascular: Heart regular rate and rhythm Chest: Diffuse wheezing with auscultation of the lungs Abdomen: abdomen soft, non-tender, non-distended, no organomegaly Musculoskeletal: Pulses present and equal in all extremities, no peripheral edema Motor: no focal deficits noted Neurological: CN II-XII grossly intact, no focal motor or sensory deficits noted Skin: Intact with no visualized rashes Psych: Normal affect and mood ED course: 32-year-old female presents emergency Department with shortness of breath. Physical examination shows a distressed female with dyspnea signs upon arrival shows borderline hypoxia 91%. She is tachypneic at 26 with a heart rate of 124. Repeat oxygen levels 80% on room air. Nursing notes and chart review was performed My EKG interpretation: Ventricular rate 116, sinus tachycardia, WI interval 137, QRS 90, QTC 392. No WI prolongation, no QTC prolongation, no ST or T-wave changes noted. Overall, this EKG is unremarkable Patient reevaluated after breathing treatment and steroids after being observed in the emergency department for 2 hours. Patient feels a lot better. She appears more palatable. We auscultation of the lungs are clear. Repeat vitals are stable. Disposition options were discussed she's agreeable for discharge with strict return precautions. Patient given prescriptions for antibiotics, rest inhaler, albuterol nebulizer medicine and steroid Dosepak. Strongly advised follow up with primary care doctor. Was pt. sent in by a medical professional or institution (EDITA Granados, [employer], urgent care, hospital, or residential...) When possible be specific @ -No Did you speak to anyone other than the patient for history (EMS, parent, family, police, friend...)? What history was obtained from this source @ -No Did you review nursing and triage notes (agree or disagree)? Why? @ -I reviewed and agree with nursing and triage notes Were old charts reviewed (outside hosp., previous admission, EMS record, old EKG, old radiological studies, urgent care reports/EKG's, residential records)? Report findings @ -No old charts were reviewed Differential Diagnosis (chest pain, altered mental status, abdominal pain women, abdominal pain men, vaginal bleeding, weakness, fever, dyspnea, syncope, headache, dizziness, GI bleed, back pain, seizure, CVA, palpatations, mental health)? @ -not applicable EKG interpreted by me (3pts min.). @ -As above X-rays interpreted by me (1pt min.). @ -As above CT interpreted by me (1pt min.). @ -None done U/S interpreted by me (1pt. min.). @ -None done What testing was considered but not performed or refused? (CT, X-rays, U/S, labs)? Why? @ -CT was considered however patient's clinical presentation unlikely to be home embolism What meds were considered but not given or refused? Why? @ -None Did you discuss the management of the patient with other professionals (professionals i.e. [employer] Granados, [employer], lab, RT, psych nurse, social sciences lecturer, military lawyer, teacher, chief digital officer, case filler)? Give summary @ -See above Was smoking cessation discussed for >3mins.? @ -No Was critical care preformed (if so, how long)? @ -No Were there social determinants of health that impacted care today? How? (Homel essness, low income, unemployed, alcoholism, drug addiction, transportation, low edu. Level, literacy, decrease access to med. care, skilled nursing, rehab)? @ -No Was there de-escalation of care discussed even if they declined (Discuss DNR or withdrawal of care, Hospice)? DNR status @ -No What co-morbidities impacted this encounter? (DM, HTN, Smoking, COPD, CAD, Cancer, CVA, ARF, Chemo, Hep., AIDS, mental health diagnosis, sleep apnea, morbid obesity)? @ -None Was patient admitted / discharged? Hospital course, mention meds given and route, prescriptions, significant lab abnormalities, going to OR and other pertinent info. @ -See above Undiagnosed new problem with uncertain prognosis? @ -No Drug Therapy requiring intensive monitoring for toxicity (Heparin, Nitro, Insulin, Cardizem)? @ -No Were any procedures done? @ -No Diagnosis/symptom? @ -Acute bronchitis Acute, or Chronic, or Acute on Chronic? @ -Acute Uncomplicated (without systemic symptoms) or Complicated (systemic symptoms)? @ -Uncomplicated Side effects of treatment? @ -No Exacerbation, Progression, or Severe Exacerbation? @ -No Poses a threat to life or bodily function? How? (Chest pain, [place], [place], pneumonia, PE, COPD, DKA, ARF, appy, cholecystitis, CVA, Diverticulitis, Homicidal, Suicidal, threat to staff... and all critical care pts) @ -No - Related Data Home Medications Medication Instructions Recorded Confirmed Vit No.180/Iron/Folic 1 tab PO DAILY 02/03/21 02/04/21 [ Plus Tablet] Previous Rx's Medication Instructions Recorded Albuterol Sulfate [Proair 1 puff INHALATION Q6H PRN #1 each 04/17/22 Digihaler] Albuterol Nebulized (Conc) 2.5 mg INHALATION Q6H PRN 6 Days 08/07/22 [Ventolin Nebulized (Conc)] #75 ml Albuterol Sulfate [Proair Hfa] 1 - 2 puff INHALATION Q6HR PRN 08/07/22 #8.5 gm Azithromycin [Zithromax Z Pack] 1 tab PO DIRECTED #6 tab 08/07/22 methylPREDNISolone Dose Pack 4 mg PO DIRECTED #1 packet 08/07/22 [Medrol Dose Pack] Allergies Allergy/AdvReac Type Severity Reaction Status Date / Time No Known Allergies Allergy Verified 04/16/22 04:35 Review of Systems ROS Statement: Those systems with pertinent positive or pertinent negative responses have been documented in the HPI. ROS Other: All systems not noted in ROS Statement are negative. Past Medical History Past Medical History: No Reported History History of Any Multi-Drug Resistant Organisms: None Reported Past Surgical History: Cholecystectomy Past Anesthesia/Blood Transfusion Reactions: No Reported Reaction Past Psychological History: No Psychological Hx Reported Smoking Status: Former smoker Past Alcohol Use History: None Reported Past Drug Use History: None Reported - Past Family History Mother Family Medical History: No Reported History General Exam Limitations: no limitations Course Vital Signs 08/07/22 08/07/22 08/07/22 15:24 15:45 15:47 Temperature 98.2 F Pulse Rate 124 H Respiratory 26 H 30 H Rate Blood Pressure 126/81 O2 Sat by Pulse 91 L 88 L 96 Oximetry 08/07/22 08/07/22 08/07/22 15:55 16:21 16:30 Temperature Pulse Rate 103 H 121 H 117 H Respiratory 18 Rate Blood Pressure 130/75 O2 Sat by Pulse 96 Oximetry 08/07/22 17:23 Temperature Pulse Rate 114 H Respiratory 18 Rate Blood Pressure 140/85 O2 Sat by Pulse 93 L Oximetry Medical Decision Making - Lab Data Result diagrams: 08/07/22 15:53 08/07/22 15:42 Lab Results 08/07/22 08/07/22 08/07/22 Range/Units 15:42 15:42 15:42 WBC (3.8-10.6) k/uL RBC (3.80-5.40) m/uL Hgb (11.4-16.0) gm/dL Hct (34.0-46.0) % MCV (80.0-100.0) fL MCH (25.0-35.0) pg MCHC (31.0-37.0) g/dL RDW (11.5-15.5) % Plt Count (150-450) k/uL MPV Neutrophils % % Lymphocytes % % Monocytes % % Eosinophils % % Basophils % % Neutrophils # (1.3-7.7) k/uL Lymphocytes # (1.0-4.8) k/uL Monocytes # (0-1.0) k/uL Eosinophils # (0-0.7) k/uL Basophils # (0-0.2) k/uL Microcytosis Sodium 140 (137-145) mmol/L Potassium 4.4 (3.5-5.1) mmol/L Chloride 105 (98-107) mmol/L Carbon Dioxide 27 (22-30) mmol/L Anion Gap 8 mmol/L BUN 11 (7-17) mg/dL Creatinine 0.74 (0.52-1.04) mg/dL Est GFR (CKD-EPI)AfAm >90 (>60 ml/min/1.73 sqM) Est GFR (CKD-EPI)NonAf >90 (>60 ml/min/1.73 sqM) Glucose 91 (74-99) mg/dL Calcium 9.2 (8.4-10.2) mg/dL Troponin I <0.012 (0.000-0.034) ng/mL NT-Pro-B Natriuret Pep 29 pg/mL HCG, Quant <2.4 mIU/mL Influenza Type A (PCR) (Not Detectd) Influenza Type B (PCR) (Not Detectd) RSV (PCR) (Not Detectd) SARS-CoV-2 (PCR) (Not Detectd) 08/07/22 08/07/22 Range/Units 15:45 15:53 WBC 15.0 H (3.8-10.6) k/uL RBC 5.84 H (3.80-5.40) m/uL Hgb 14.7 (11.4-16.0) gm/dL Hct 44.7 (34.0-46.0) % MCV 76.6 L (80.0-100.0) fL MCH 25.1 (25.0-35.0) pg MCHC 32.8 (31.0-37.0) g/dL RDW 15.2 (11.5-15.5) % Plt Count 245 (150-450) k/uL MPV 7.2 Neutrophils % 61 % Lymphocytes % 27 % Monocytes % 4 % Eosinophils % 5 % Basophils % 1 % Neutrophils # 9.2 H (1.3-7.7) k/uL Lymphocytes # 4.1 (1.0-4.8) k/uL Monocytes # 0.6 (0-1.0) k/uL Eosinophils # 0.7 (0-0.7) k/uL Basophils # 0.1 (0-0.2) k/uL Microcytosis Slight Sodium (137-145) mmol/L Potassium (3.5-5.1) mmol/L Chloride (98-107) mmol/L Carbon Dioxide (22-30) mmol/L Anion Gap mmol/L BUN (7-17) mg/dL Creatinine (0.52-1.04) mg/dL Est GFR (CKD-EPI)AfAm (>60 ml/min/1.73 sqM) Est GFR (CKD-EPI)NonAf (>60 ml/min/1.73 sqM) Glucose (74-99) mg/dL Calcium (8.4-10.2) mg/dL Troponin I (0.000-0.034) ng/mL NT-Pro-B Natriuret Pep pg/mL HCG, Quant mIU/mL Influenza Type A (PCR) Not Detected (Not Detectd) Influenza Type B (PCR) Not Detected (Not Detectd) RSV (PCR) Not Detected (Not Detectd) SARS-CoV-2 (PCR) Not Detected (Not Detectd) Disposition Clinical Impression: Acute bronchitis Disposition: HOME SELF-CARE Condition: Fair Instructions (If sedation given, give patient instructions): Acute Bronchitis (ED) Prescriptions: methylPREDNISolone Dose Pack [Medrol Dose Pack] 4 mg PO DIRECTED #1 packet Albuterol Sulfate [Proair Hfa] 1 - 2 puff INHALATION Q6HR PRN #8.5 gm PRN Reason: Dyspnea Albuterol Nebulized (Conc) [Ventolin Nebulized (Conc)] 2.5 mg INHALATION Q6H PRN 6 Days #75 ml PRN Reason: Dyspnea Azithromycin [Zithromax Z Pack] 1 tab PO DIRECTED #6 tab Is patient prescribed a controlled substance at d/c from ED?: No Referrals: None,Stated [Primary Care Provider] - 1-2 days Time of Disposition: 17:29
[2022-08-07 15:59] LABS: Basophils # (A) 0.1 k/uL (0-0.2); Basophils % (A) 1 %; Eosinophils # (A) 0.7 k/uL (0-0.7); Eosinophils % (A) 5 %; HCT 44.7 % (34.0-46.0); HGB 14.7 gm/dL (11.4-16.0); Lymphocytes # (A) 4.1 k/uL (1.0-4.8); Lymphocytes % (A) 27 %; MCH 25.1 pg (25.0-35.0); MCHC 32.8 g/dL (31.0-37.0); MCV 76.6 fL (80.0-100.0); Mean Platelet Volume 7.2; Microcytosis Slight; Monocytes # (A) 0.6 k/uL (0-1.0); Monocytes % (A) 4 %; Neutrophils # (A) 9.2 k/uL (1.3-7.7); Neutrophils % (A) 61 %; Platelet Count 245 k/uL (150-450); RBC 5.84 m/uL (3.80-5.40); RDW 15.2 % (11.5-15.5)
[2022-08-07 16:06] LABS: African American GFR (CKD) >90 (>60 ml/min/1.73 sqM); Anion Gap 8 mmol/L; Blood Urea Nitrogen 11 mg/dL (7-17); Calcium 9.2 mg/dL (8.4-10.2); Carbon Dioxide 27 mmol/L (22-30); Chloride 105 mmol/L (98-107); Glucose 91 mg/dL (74-99); Non-African American GFR(CKD) >90 (>60 ml/min/1.73 sqM); Potassium 4.4 mmol/L (3.5-5.1); Sodium 140 mmol/L (137-145)
[2022-08-07 16:24] LABS: HCG,Quantitative Serum <2.4 mIU/mL
[2022-08-07 16:32] VITALS: RESP 18
--- NOTE | 2022-08-07 16:58 | XR ---
EXAMINATION TYPE: XR chest 2V DATE OF EXAM: 08/07/2022 COMPARISON: 04/16/2022 HISTORY: Short of breath TECHNIQUE: 2 views FINDINGS: Heart and mediastinum are normal. Lungs are clear. Diaphragm is normal. Bony thorax is inta ct for chest disease. IMPRESSION: No active cardiopulmonary disease. No change.
[2022-08-07 17:24] VITALS: BP 140/85; PULSE 114
== END 2022-08-07 17:38 | disposition home or self-care (01) ==
LOC: EC 15:18
DX: J20.8 Acute bronchitis due to other specified organisms (principal); Z87.891 Personal history of nicotine dependence; Z20.822 Contact with and (suspected) exposure to COVID-19
CPT/HCPCS: 36415; 94640; 83880; 80048; 84484; 85025; 84702; 87636; 71046; 99285; 96374; J1100

== ENCOUNTER 2023-12-24 06:04 | Inpatient (IN) | payer BC ==
[2023-12-24] MEDS ORDERED: LIDOCAINE 0.5% (PF) 5 MG/ML (50 ML SDV) SQ PRN (06:25)
[2023-12-24] MEDS ORDERED: TERBUTALINE 1 MG/ML VIAL SQ PRN (06:25)
[2023-12-24] MEDS ORDERED: CARBOPROST TROMETHAMINE 250 MCG/ML 1 ML AMP IM PRN ×2 (06:25→06:27)
[2023-12-24] MEDS ORDERED: miSOPROStoL 200 MCG TAB PO PRN (06:27)
[2023-12-24] MEDS ORDERED: METHYLERGONOVINE 0.2 MG/ML 1 ML AMP IM PRN (06:27)
[2023-12-24] MEDS ORDERED: OXYTOCIN 10 UNIT/ML 1 ML VIAL IM PRN (06:27)
[2023-12-24] MEDS ORDERED: TRANEXAMIC 1,000 MG/100ML-NACL 1,000 MG in EMPTY BAG 1 BAG IV PRN (06:27)
[2023-12-24] MEDS ORDERED: OXYTOCIN 30 UNITS/500 ML NS 30 UNIT in SALINE 1 500ML.BAG IV SCH ×2 (06:30→09:15)
[2023-12-24] MEDS: LACTATED RINGERS 1,000 ML IV SCH ×2 (06:36→11:47)
[2023-12-24] MEDS: CITRIC ACID-SODIUM CITRATE 15 ML CUP PO ONE (07:24)
--- NOTE | 2023-12-24 07:48 | P.HPOB ---
History of Present Illness H&P Date: 12/24/23 Chief Complaint: primary low transverse Her old presents at 39 weeks for a primary low transverse due to a previous history of shoulder dystocia. Review of Systems All systems: negative Constitutional: Denies chills, Denies fever Eyes: denies blurred vision, denies pain Ears, nose, mouth and throat: Denies headache, Denies sore throat Cardiovascular: Denies chest pain, Denies shortness of breath Respiratory: Denies cough Gastrointestinal: Denies abdominal pain, Denies diarrhea, Denies nausea, Denies vomiting Genitourinary: Denies dysuria, Denies hematuria Musculoskeletal: Denies myalgias Integumentary: Denies pruritus, Denies rash Neurological: Denies numbness, Denies weakness Psychiatric: Denies anxiety, Denies depression Endocrine: Denies fatigue, Denies weight change Past Medical History Past Medical History: Asthma, GERD/Reflux History of Any Multi-Drug Resistant Organisms: None Reported Past Surgical History: Cholecystectomy Additional Past Surgical History / Comment(s): Gall bladder surgery Past Anesthesia/Blood Transfusion Reactions: No Reported Reaction Past Psychological History: No Psychological Hx Reported Smoking Status: Former smoker Past Alcohol Use History: None Reported Additional Past Alcohol Use History / Comment(s): quit smoking 2020, smoked 5 yrs. <ppd Past Drug Use History: None Reported - Past Family History Mother Family Medical History: No Reported History Medications and Allergies Home Medications Medication Instructions Recorded Confirmed Type Albuterol Inhaler [Ventolin Hfa 2 puff INHALATION QID PRN 12/22/23 12/24/23 History Inhaler] Fluticasone Propion/Salmeterol 1 inhalation PO BID 12/22/23 12/24/23 History [[place] 250-50 Inhub] Vit No.179/Iron/Folic 1 each PO DAILY 12/22/23 12/24/23 History [ Tablet] Allergies Allergy/AdvReac Type Severity Reaction Status Date / Time No Known Allergies Allergy Verified 08/28/22 07:00 Exam Osteopathic Statement: *. No significant issues noted on an osteopathic structural exam other than those noted in the History and Physical/Consult. Vital Signs Temp Pulse Resp BP Pulse Ox 12/24/23 06:24 97.7 F 89 16 113/71 96 Intake and Output 12/23/23 12/24/23 12/24/23 22:59 06:59 14:59 Other: Weight 119.748 kg Heart: Regular rate and rhythm Lungs: Clear to auscultation bilaterally Abdomen: Soft, nontender Extremities: Negative Homans sign Assessment and Plan (1) History of shoulder dystocia Current Visit: Yes Status: Acute Code(s): KIT0965 - SNOMED Code(s): 897526232 (2) 39 weeks gestation of Current Visit: No Status: Acute Code(s): Z3A.39 - 39 WEEKS GESTATION OF SNOMED Code(s): 68975127 Plan: 1. Primary low transverse
[2023-12-24] MEDS ORDERED: NALOXONE 0.4 MG/ML 1 ML VIAL IV PRN (08:00)
[2023-12-24] MEDS ORDERED: NALBUPHINE 10 MG/ML (10 ML MDV) IV PRN (08:00)
[2023-12-24] MEDS ORDERED: diphenhydrAMINE 50 MG/ML 1 ML VIAL IVP PRN ×3 (08:00→09:11)
[2023-12-24 08:11] LABS: Basophils % (A) 0 %; Eosinophils # (A) 0.1 k/uL (0-0.7); Eosinophils % (A) 1 %; HCT 35.5 % (34.0-46.0); HGB 11.4 gm/dL (11.4-16.0); Hypochromasia Slight; Lymphocytes # (A) 2.6 k/uL (1.0-4.8); Lymphocytes % (A) 21 %; MCH 25.1 pg (25.0-35.0); MCHC 32.1 g/dL (31.0-37.0); MCV 78.1 fL (80.0-100.0); Mean Platelet Volume 8.2; Monocytes # (A) 0.5 k/uL (0-1.0); Monocytes % (A) 4 %; Neutrophils % (A) 73 %; Platelet Count 203 k/uL (150-450); RBC 4.54 m/uL (3.80-5.40); RDW 14.9 % (11.5-15.5); WBC 12.3 k/uL (3.8-10.6)
[2023-12-24] MEDS ORDERED: ONDANSETRON 4 MG/2 ML VIAL ONE (08:15)
[2023-12-24] MEDS ORDERED: ePHEDrine 50 MG/ML 1 ML VIAL ONE (08:15)
[2023-12-24] MEDS ORDERED: NALBUPHINE 10 MG/ML (10 ML MDV) ONE (08:15)
[2023-12-24] MEDS ORDERED: KETOROLAC 15 MG/ML 1 ML VIAL ONE (08:15)
[2023-12-24] MEDS ORDERED: OXYTOCIN 30 UNITS/500 ML NS BAG IV ONE (08:15)
[2023-12-24] MEDS ORDERED: MORPHINE SULFATE (PF) 0.3 MG/0.3 ML SYR ONE (08:15)
[2023-12-24] MEDS ORDERED: diphenhydrAMINE 50 MG CAP PO PRN (09:11)
[2023-12-24] MEDS ORDERED: diphenhydrAMINE 25 MG CAP PO PRN (09:11)
[2023-12-24] MEDS ORDERED: METOCLOPRAMIDE 5 MG/ML 2 ML VIAL IVP PRN (09:11)
[2023-12-24] MEDS ORDERED: ZOLPIDEM 5 MG TAB PO PRN (09:11)
[2023-12-24] MEDS ORDERED: ONDANSETRON 4 MG/2 ML VIAL IVP PRN (09:11)
[2023-12-24] MEDS ORDERED: SIMETHICONE 80 MG CHEWABLE PO PRN (09:11)
--- NOTE | 2023-12-24 09:11 | P.OP ---
Date of Procedure: 12/24/23 Preoperative Diagnosis: 1. at 38 weeks 4 days 2. previous shoulder dystocia Postoperative Diagnosis: same Procedure(s) Performed: Primary low transverse Anesthesia: spinal Surgeon: Robyn Toussaint Zipper Cutter #1: Mati Pimentel Estimated Blood Loss (ml): 391 IV fluids (ml): 1,500 Urine output (ml): 300 Pathology: other (placenta) Condition: stable Disposition: floor Operative Findings: Viable male, Apgars 5 at 1 minute, 8 at 5 minutes and 8 at 10 minutes. Weight 6 lbs. 2 oz. normal uterus, tubes, ovaries. Description of Procedure: Patient was taken to the operating room where spinal anesthesia was found be adequate. She was prepped and draped in normal sterile fashion in dorsal supine position with a leftward tilt. Pfannenstiel skin incision was made the scalpel and carried through to the underlying layer of fascia with the scalpel. Fascia was incised in midline and carried bilaterally with the Campos scissors. The superior aspect of the fascial incision was grasped with [place] clamps elevated and the underlying rectus muscles dissected off with the Campos's. Attention was then turned to inferior aspect of same incision which in a similar fashion was grasped tented up and the underlying rectus muscles dissected off with the Campos's. The rectus muscles were the midline and the peritoneum was identified tented up and entered sharply with the scalpel. The incision was extended superiorly and inferiorly with good visualization of the bladder. The bladder blade was inserted. A low transverse incision was then made on the uterus with the scalpel. This was carried bilaterally and digital manner. Infant's head delivered atraumatically, nose and mouth bulb suctioned, cord clamped and cut, handed off to waiting nurses. Apgars 5 at one minute,8 at five minutes, and 8 at ten minutes. weight 6lbs. 2 oz. Placenta delivered manually, intact with three-vessel cord. The uterus is exteriorized and cleared of all clots and debris. The uterine incision was closed with 0 Vicryl in a running locked fashion. Second layer of the same sutures used in imbricating fashion to obtain excellent hemostasis. Both ovaries and tubes appeared normal. The uterus was placed back into the abdomen. The peritoneum was reapproximated using 2-0 Vicryl in a running fashion. The fascia was reapproximated using 0 Vicryl in a running fashion. The subcutaneous tissues closed with 3-0 Vicryl running fashion. The skin was closed devorah. Patient tolerated the procedure well, sponge and instrument counts were correct times 2 and she was taken to the recovery room in stable condition.
[2023-12-24] MEDS: ACETAMINOPHEN TAB 500 MG TAB PO SCH (11:45)
[2023-12-24] MEDS: KETOROLAC 15 MG/ML 1 ML VIAL IVP SCH (15:35)
[2023-12-24] MEDS: IBUPROFEN 600 MG TAB PO SCH (15:40)
[2023-12-24] MEDS: SENNOSIDES-DOCUSATE SODIUM 1 EACH TAB PO SCH (20:43)
[2023-12-24 20:45] VITALS: RESP 16
[2023-12-25 07:36] LABS: HCT 27.4 % (34.0-46.0); MCH 24.9 pg (25.0-35.0); MCHC 31.8 g/dL (31.0-37.0); MCV 78.5 fL (80.0-100.0); Mean Platelet Volume 8.4; Platelet Count 222 k/uL (150-450); RBC 3.49 m/uL (3.80-5.40); RDW 14.9 % (11.5-15.5); WBC 12.3 k/uL (3.8-10.6)
[2023-12-25 08:00] LABS: HGB 8.7 gm/dL (11.4-16.0)
[2023-12-25 08:53] LABS: Eosinophils # (M) 0.12 k/uL (0-0.7); Lymphocytes # (M) 2.58 k/uL (1.0-4.8); Monocytes # (M) 0.62 k/uL (0-1.0); Neutrophils # (M) 8.98 k/uL (1.3-7.7); Neutrophils % (M) 73 %; Nucleated Red Blood Cells 0 /100 WBC (0-0); RBC Morphology Normal; Total Cells Counted 100
--- NOTE | 2023-12-25 10:57 | P.PNOBGPC ---
Subjective - Subjective Patient reports: Reports appetite normal, Reports voiding normally, Reports pain well controlled, Reports ambulating normally : doing well, in NICU (Currently on high flow oxygen and receiving prophylactic antibiotics.) Objective - Vital Signs Latest vital signs: Vital Signs Temp Pulse Resp BP Pulse Ox 12/25/23 07:37 97.8 F 103 H 16 103/63 97 12/25/23 04:00 107 H 16 106/67 96 12/24/23 20:00 92 16 124/80 98 12/24/23 16:34 17 97 12/24/23 15:37 97.8 F 90 17 125/82 97 12/24/23 15:00 17 97 12/24/23 13:00 17 97 12/24/23 11:19 97.8 F 89 17 116/70 97 12/24/23 11:00 100 17 121/61 96 Intake and Output 12/24/23 12/25/23 12/25/23 22:59 06:59 14:59 Output Total 400 500 Balance -400 -500 Output: Urine 400 500 Uretheral (Mccain) 300 Other: Voiding Method Indwelling Catheter # Voids 1 - Exam Extremities: Present: normal Abdomen: Present: normal appearance, soft. Absent: distention, tenderness Incision: Present: normal, dry, intact Uterus: Present: normal, firm - Labs Labs: Abnormal Lab Results - Last 24 Hours (Table) 12/25/23 Range/Units 06:22 WBC 12.3 H (3.8-10.6) k/uL RBC 3.49 L (3.80-5.40) m/uL Hgb 8.7 L D (11.4-16.0) gm/dL Hct 27.4 L (34.0-46.0) % MCV 78.5 L (80.0-100.0) fL MCH 24.9 L (25.0-35.0) pg Neutrophils # (Manual) 8.98 H (1.3-7.7) k/uL Assessment and Plan (1) Status post section Current Visit: Yes Status: Acute Code(s): Z98.891 - HISTORY OF UTERINE SCAR FROM PREVIOUS SURGERY SNOMED Code(s): 445573315 Plan: Continue routine and postoperative care. As the infant remains in the nursery, the patient will continue to remain in the hospital until his release or and postoperative day #4, whichever comes first. I have encouraged her to ambulate in the hallways routinely. She is currently tolerating regular diet and performing all other activities of daily living.
--- NOTE | 2023-12-25 14:20 | P.PN ---
Progress Note - Text Progress Note Date: 12/25/23 Postoperative day 1 status post section under spinal anesthesia, and intrathecal morphine given for postoperative analgesia, patient doing well, there is no anesthesia related complications, Patient had no headache, vital signs stable , Assessment and plan= postop day 1 status post , doing well there is no anesthesia related complication.
[2023-12-26] MEDS: MEASLES-MUMPS-RUBELLA VACC/PF 12,500 UNIT/0.5 ML VIAL SQ ONE (06:52)
--- NOTE | 2023-12-26 08:49 | P.PNOBGPC ---
Subjective - Subjective Patient reports: Reports appetite normal, Reports voiding normally, Reports pain well controlled, Reports ambulating normally : doing well, in NICU (Off high flow oxygen, still receiving prophylactic antibiotics.) Objective - Vital Signs Latest vital signs: Vital Signs Temp Pulse Resp BP Pulse Ox 12/26/23 07:44 97.9 F 80 16 113/73 98 12/26/23 00:00 98.1 F 81 16 113/74 98 12/25/23 16:00 97.8 F 86 16 114/70 98 Intake and Output 12/25/23 12/26/23 12/26/23 22:59 06:59 14:59 Other: # Voids 1 2 - Exam Extremities: Present: normal Abdomen: Present: normal appearance (Moderate ecchymotic changes above the incision in the pannus.), soft. Absent: distention, tenderness Incision: Present: normal, dry, intact Uterus: Present: normal, firm (The uterine fundus is tonic and minimally tender below the umbilicus.) - Labs Labs: Abnormal Lab Results - Last 24 Hours (Table) 12/25/23 Range/Units 06:22 Neutrophils # (Manual) 8.98 H (1.3-7.7) k/uL Assessment and Plan (1) Status post section Current Visit: Yes Status: Acute Code(s): Z98.891 - HISTORY OF UTERINE SCAR FROM PREVIOUS SURGERY SNOMED Code(s): 453554045 Plan: Continue routine and postoperative care. Again, the patient will likely remain in the hospital until the is released or postoperative day #4, whichever comes first. She has been encouraged to continue to ambulate routinely.
--- NOTE | 2023-12-27 09:32 | P.DS ---
Providers Date of admission: 12/24/23 06:04 Expected date of discharge: 12/27/23 Attending physician: Robyn Toussaint Primary care physician: Stated None - Discharge Diagnosis(es) (1) History of shoulder dystocia Current Visit: Yes Status: Resolved (2) 39 weeks gestation of Current Visit: No Status: Resolved (3) Status post primary low transverse section Current Visit: Yes Status: Acute Hospital Course: Patient presented for primary low transverse for hx shoulder dystocia. She underwent this procedure without complication. Postoperative course has been uneventful. Patient denies nausea, vomiting, chest pain, shortness of breath or calf pain. Patient will be discharged home postoperative day #3 in stable condition to follow-up with me in 2 weeks. Plan - Discharge Summary Discharge Rx Participant: No New Discharge Prescriptions: No Action Fluticasone Propion/Salmeterol [Wixela 250-50 Inhub] 1 inhalation PO BID Vit No.179/Iron/Folic [ Tablet] 1 each PO DAILY Albuterol Inhaler [Ventolin Hfa Inhaler] 2 puff INHALATION QID PRN PRN Reason: Shortness Of Breath Discharge Medication List Albuterol Inhaler [Ventolin Hfa Inhaler] 2 puff INHALATION QID PRN 12/22/23 [History] Fluticasone Propion/Salmeterol [Wixela 250-50 Inhub] 1 inhalation PO BID 12/22/23 [History] Vit No.179/Iron/Folic [ Tablet] 1 each PO DAILY 12/22/23 [History] Follow up Appointment(s)/Referral(s): Robyn Toussaint DO [Doctor of Osteopathic Medicine] - 02/01/24 1:45 pm (Post C/S Appointment 01-04-2024 at 1:45pm) Discharge Disposition: HOME SELF-CARE
[2023-12-27 16:47] VITALS: BP 110/68; PULSE 70; TEMP 98.6
== END 2023-12-27 16:50 | disposition home or self-care (01) | DRG 788 ==
LOC: 4FBP 06:04
PROVIDERS: ADMIT Obstetrics & Gynecology; ATTEND Obstetrics & Gynecology
PROC: 10D00Z1 Extraction of Products of Conception, Low, Open Approach (ICD-10-PCS; principal; 2023-12-24 08:00)
DX: O34.211 Maternal care for low transverse scar from previous cesarean delivery (principal); N85.8 Other specified noninflammatory disorders of uterus; Z3A.39 39 weeks gestation of pregnancy; Z37.0 Single live birth; O99.52 Diseases of the respiratory system complicating childbirth; J45.909 Unspecified asthma, uncomplicated; Z3A.38 38 weeks gestation of pregnancy; Z87.891 Personal history of nicotine dependence; K21.9 Gastro-esophageal reflux disease without esophagitis; Z28.21 Immunization not carried out because of patient refusal; Z79.899 Other long term (current) drug therapy
CPT/HCPCS: 85025; 86850; 86900; 86901; 88307; 90707